=== PATIENT | female | born 1995 | race Caucasian/White ===

== ENCOUNTER 2018-03-31 09:21 | Emergency (ER) | payer SELFPAY ==
[2018-03-31 10:50] LABS: Urine Blood 1+ (NEG); Urine Glucose NEGATIVE (NEG); Urine Protein NEGATIVE (NEG); Urine pH 5.5 (5.0-7.0)
[2018-03-31 10:55] LABS: Absolute Lymphocytes (CBC) 2.1 K/uL (0.7-4.9); Absolute Monocytes 0.4 K/uL (0.1-1.3); Basophils % 1.1 % (0-1.3); Eosinophils % 5.8 % (0-4.4); Hematocrit 36.7 % (36.0-45.0); Lymphocytes % 35.1 % (15.3-44.8); MCH 30.8 pg (27.0-35.0); MCV 90.8 fL (80-100); MPV 8.3 fL (7.6-11.3); Monocytes % 6.5 % (3.3-12.3); RBC Red Blood Cell Count 4.04 M/uL (3.86-4.86)
[2018-03-31 11:01] LABS: Potassium 3.9 mEq/L (3.6-5.0)
[2018-03-31 11:07] LABS: Bilirubin Direct 0.1 mg/dL (0-0.2); Bilirubin Total 0.8 mg/dL (0.3-1.2); Protein, Total 6.8 g/dL (6.0-8.3)
[2018-03-31 11:35] LABS: Urine Bacteria <20 /HPF (<20); Urine RBC <5 /HPF (NONE SEEN)
[2018-03-31 11:36] LABS: Urine Culture Reflex Order NOT NEEDED
[2018-03-31] MEDS ORDERED: KETOROLAC 30 MG/ML INJ ONE (11:52)
[2018-03-31] MEDS ORDERED: NA CHLORIDE 0.9% 1,000 ML ONE (11:52)
--- NOTE | 2018-03-31 11:54 | RAD REPORT ---
EXAM DESCRIPTION: CTAbdomen Pelvis W Contrast - 03/31/2018 11:47 am CLINICAL HISTORY: Abdominal pain. Left flank pain COMPARISON: None. TECHNIQUE: Biphasic CT imaging of the abdomen and pelvis was performed with 100 ml non-ionic IV cont rast. All CT scans are performed using dose optimization technique as appropriate and may include automated exposure control or mA/KV adjustment according to patient size. FINDINGS: The lung bases are clear. The liver, spleen, pancreas, adrenal glands are within normal limits. Bilateral punctate nephrolithia sis is identified without hydronephrosis. No bowel obstruction, free air, free fluid or abscess. Sigmoid diverticulosis without diverticulitis. The appendix is normal. No evidence of significant lymphadenopathy. No suspicious bony findings. IMPRESSION: Punctate bilateral nephrolithiasis without hydronephrosis.
--- NOTE | 2018-03-31 12:22 | EDPHYS ---
Physician Documentation [facility] Name: Candy Garcia Age: 22 yrs Sex: Female : 1995 Arrival Date: 03/31/2018 Time: 09:30 Bed 14 Private MD: ED Physician Kishan Arias HPI: 03/31 10:00 This 22 yrs old Female presents to ER via Ambulatory with complaints of pm1 Weakness, Back Pain. 10:00 The patient complains of pain in the left mid back. radiation to left lower rib area. pm1 Onset: The symptoms/episode began/occurred 3 day(s) ago. Modifying factors: The symptoms are alleviated by nothing. the symptoms are aggravated by nothing. Associated signs and symptoms: Pertinent negatives: dysuria, fever, nausea, vomiting. Severity of pain: in the emergency department the pain is unchanged Despite two visit to the chiropractor and received massage for two days. The patient has not experienced similar symptoms in the past. The patient has not recently seen a physician. 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 - Social history:: Smoking status: Patient/guardian denies using tobacco. ROS: 10:00 Constitutional: Negative for fever, chills, and weight loss, Eyes: Negative for injury, pm1 pain, redness, and discharge, ENT: Negative for injury, pain, and discharge, Neck: Negative for injury, pain, and swelling, Cardiovascular: Negative for chest pain, palpitations, and edema, Respiratory: Negative for shortness of breath, cough, wheezing, and pleuritic chest pain, Abdomen/GI: Negative for abdominal pain, nausea, vomiting, diarrhea, and constipation. 10:00 : Negative for injury, bleeding, discharge, and swelling, MS/Extremity: Negative for injury and deformity, Skin: Negative for injury, rash, and discoloration, Neuro: Negative for headache, weakness, numbness, tingling, and seizure. 10:00 Back: Positive for flank pain, on the left. Exam: 10:00 Constitutional: This is a well developed, well nourished patient who is awake, alert, pm1 and in no acute distress. Head/Face: Normocephalic, atraumatic. Eyes: Pupils equal round and reactive to light, extra-ocular motions intact. Lids and lashes normal. Conjunctiva and sclera are non-icteric and not injected. Cornea within normal limits. Periorbital areas with no swelling, redness, or edema. ENT: Nares patent. No nasal discharge, no septal abnormalities noted. Tympanic membranes are normal and external auditory canals are clear. Oropharynx with no redness, swelling, or masses, exudates, or evidence of obstruction, uvula midline. Mucous membranes moist. Neck: Trachea midline, no thyromegaly or masses palpated, and no cervical lymphadenopathy. Supple, full range of motion without nuchal rigidity, or vertebral point tenderness. No Meningismus. Chest/axilla: Normal chest wall appearance and motion. Nontender with no deformity. No lesions are appreciated. Cardiovascular: Regular rate and rhythm with a normal S1 and S2. No gallops, murmurs, or rubs. Normal PMI, no JVD. No pulse deficits. Respiratory: Lungs have equal breath sounds bilaterally, clear to auscultation and percussion. No rales, rhonchi or wheezes noted. No increased work of breathing, no retractions or nasal flaring. Abdomen/GI: Soft, non-tender, with normal bowel sounds. No distension or tympany. No guarding or rebound. No evidence of tenderness throughout. 10:00 Skin: Warm, dry with normal turgor. Normal color with no rashes, no lesions, and no evidence of cellulitis. MS/ Extremity: Pulses equal, no cyanosis. Neurovascular intact. Full, normal range of motion. 10:00 Back: muscle spasm, is appreciated in the left mid back, Pain reproduced with moving left arm above her head and with palpation . 10:00 Neuro: Orientation: is normal, Mentation: is normal, Motor: moves all fours, Gait: is steady, at a normal pace, without difficulty. Vital Signs: 09:46 BP 133 / 76; Pulse 55; Resp 16; Temp 97.7; Pulse Ox 100% on R/A; Weight 88.45 kg; ph Height 5 ft. 10 in. (177.80 cm); Pain 9/10; 11:15 BP 127 / 82; Pulse 56; Resp 18; Pulse Ox 98% on R/A; ph 12:30 BP 122 / 78; Pulse 54; Resp 18; Temp 97.8(TE); Pulse Ox 98% on R/A; ph 09:46 Body Mass Index 27.98 (88.45 kg, 177.80 cm) ph MDM: 09:37 Patient medically screened. pm1 12:17 Data reviewed: vital signs. Data interpreted: Pulse oximetry: on room air is 98 %. pm1 Interpretation: normal. Counseling: I had a detailed discussion with the patient and/or guardian regarding: the historical points, exam findings, and any diagnostic results supporting the discharge/admit diagnosis, lab results, radiology results, the need for outpatient follow up, to return to the emergency department if symptoms worsen or persist or if there are any questions or concerns that arise at home. 03/31 09:49 Order name: Basic Metabolic Panel; Complete Time: 11:19 pm03/31 09:49 Order name: CBC with Diff; Complete Time: 11:19 pm03/31 09:49 Order name: Hepatic Function; Complete Time: 11:19 pm03/31 09:49 Order name: Lipase; Complete Time: 11:19 pm03/31 09:49 Order name: Urine Microscopic Only; Complete Time: 11:42 pm03/31 10:37 Order name: Urine Dipstick--Ancillary (enter results); Complete Time: 11:19 bd 03/31 09:49 Order name: Urine Test (obtain specimen); Complete Time: 10:36 pm03/31 09:49 Order name: IV Saline Lock; Complete Time: 10:34 pm03/31 09:49 Order name: Labs collected and sent; Complete Time: 10:34 pm03/31 09:49 Order name: Urine Dipstick-Ancillary (obtain specimen); Complete Time: 10:34 pm03/31 10:37 Order name: Urine --Ancillary (enter results); Complete Time: 11:19 bd 03/31 11:23 Order name: CT Abd/Pelvis - W/Contrast: IV contrast only; Complete Time: 12:09 pm1 Administered Medications: 11:55 Drug: NS 0.9% 1000 ml Route: IV; Rate: 1000 ml; Site: right antecubital; ph 11:55 Drug: TORadol 30 mg Route: IVP; Site: right antecubital; ph Disposition: 04/01 07:16 Co-signature as Attending Physician, Kishan Arias MD I agree with the assessment and jacinto plan of care. Disposition: 03/31/18 12:22 Discharged to Home. Impression: Bilateral nephrolithiasis, Left flank pain. - Condition is Stable. - Discharge Instructions: Kidney Stones, Muscle Cramps and Spasms, Dietary Guidelines to Help Prevent Kidney Stones. - Prescriptions for Naprosyn 500 mg Oral Tablet - take 1 tablet by ORAL route 2 times per day take with food; 30 tablet. Cyclobenzaprine 10 mg Oral Tablet - take 1 tablet by ORAL route every 8 hours As needed; 30 tablet. - Work release form, Medication Reconciliation Form, Thank You Letter form. - Follow up: Emergency Department; When: As needed; Reason: Worsening of condition. Follow up: Private Physician; When: 2 - 3 days; Reason: Recheck today's complaints, Continuance of care, Re-evaluation by your physician. - Problem is new. - Symptoms have improved. Signatures: Dispatcher [employer] Kishan Mora MD MD cha Hall, Patricia, RN RN Earl John NP JET SKI MECHANIC pm1 Corrections: (The following items were deleted from the chart) 03/31 13:02 12:22 03/31/2018 12:22 Discharged to Home. Impression: Bilateral nephrolithiasis; Left ph flank pain. Condition is Stable. Forms are Medication Reconciliation Form, Thank You Letter, Antibiotic Education, Prescription Opioid Use. Follow up: Emergency Department; When: As needed; Reason: Worsening of condition. Follow up: Private Physician; When: 2 - 3 days; Reason: Recheck today's complaints, Continuance of care, Re-evaluation by your physician. Problem is new. Symptoms have improved. pm1
--- NOTE | 2018-03-31 12:22 | ER ---
Nurse's Notes [facility] Name: Candy Garcia Age: 22 yrs Sex: Female : 1995 Arrival Date: 03/31/2018 Time: 09:30 Bed 14 Private MD: Diagnosis: Bilateral nephrolithiasis;Left flank pain Presentation: 03/31 09:43 Presenting complaint: Patient states: " I have been having back pain that wraps around ph to my ribs since Wednesday. I've also been told that I need to watch my sugar and iron levels and I've been feeling really weak lately so I wanted to get those checked too." Denies known injury, also denies urinary symptoms. Transition of care: patient was not received from another setting of care. Onset of symptoms was March 31, 2018. Initial Sepsis Screen: Does the patient meet any 2 criteria? No. Patient's initial sepsis screen is negative. Does the patient have a suspected source of infection? No. Patient's initial sepsis screen is negative. Care prior to arrival: None. 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 - Social history:: Smoking status: Patient/guardian denies using tobacco. Screenin:31 Abuse screen: Denies threats or abuse. Denies injuries from another. Nutritional ph screening: No deficits noted. Tuberculosis screening: No symptoms or risk factors identified. Fall Risk None identified. Assessment: 09:48 General: Appears in no apparent distress. uncomfortable, well groomed, Behavior is ph calm, cooperative, appropriate for age, Denies fever, feeling ill. Pain: Complains of pain in left mid back Pain radiates to left lateral posterior chest and left lateral anterior chest. Neuro: Level of Consciousness is awake, alert, obeys commands, Oriented to person, place, time, situation. Cardiovascular: Capillary refill < 3 seconds Patient's skin is warm and dry. Respiratory: Reports pain with cough pain with movement Airway is patent Respiratory effort is even, unlabored. GI: Reports nausea, Patient currently denies diarrhea, nausea, vomiting. : Denies burning with urination, urinary frequency. Derm: Skin is intact, is healthy with good turgor, Skin is pink, warm \\T\\ dry. Musculoskeletal: Circulation, motion, and sensation intact. Range of motion: intact in all extremities. 11:25 Reassessment: Patient appears in no apparent distress at this time. Patient and/or ph family updated on plan of care and expected duration. Pain level reassessed. Patient is alert, oriented x 3, equal unlabored respirations, skin warm/dry/pink. Pt taken to CT via wheelchair. Vital Signs: 09:46 BP 133 / 76; Pulse 55; Resp 16; Temp 97.7; Pulse Ox 100% on R/A; Weight 88.45 kg; ph Height 5 ft. 10 in. (177.80 cm); Pain 9/10; 11:15 BP 127 / 82; Pulse 56; Resp 18; Pulse Ox 98% on R/A; ph 12:30 BP 122 / 78; Pulse 54; Resp 18; Temp 97.8(TE); Pulse Ox 98% on R/A; ph 09:46 Body Mass Index 27.98 (88.45 kg, 177.80 cm) ph ED Course: 09:30 Patient arrived in ED. sb2 09:31 Earl Castillo NP is PHCP. pm1 09:31 Kishan Arias MD is Attending Physician. pm1 09:42 Darlin Dong, RN is Primary Nurse. ph 09:45 Triage completed. ph 09:48 Arm band placed on. ph 10:20 Inserted saline lock: 20 gauge in left antecubital area, using aseptic technique. Blood ph collected. 10:32 Patient has correct armband on for positive identification. Bed in low position. Call ph light in reach. Side rails up X 1. Pulse ox on. NIBP on. Warm blanket given. 11:47 CT Abd/Pelvis - W/Contrast: IV contrast only In Process Unspecified. EDMS 13:00 No provider procedures requiring assistance completed. IV discontinued, intact, ph bleeding controlled, No redness/swelling at site. Pressure dressing applied. Administered Medications: 11:55 Drug: NS 0.9% 1000 ml Route: IV; Rate: 1000 ml; Site: right antecubital; ph 11:55 Drug: TORadol 30 mg Route: IVP; Site: right antecubital; ph Outcome: 12:22 Discharge ordered by . pm1 13:02 Patient left the ED. ph 13:02 Discharged to home ambulatory, with friend. ph 13:02 Condition: good 13:02 Discharge instructions given to patient, Instructed on discharge instructions, follow up and referral plans. medication usage, Demonstrated understanding of instructions, follow-up care, medications, Prescriptions given X 2. Signatures: Dispatcher [employer] Darlin Pereira RN RN Earl John, JERSON RECEIVING TELLER pm1 Lor Manzanares sb2
== END 2018-03-31 13:02 | disposition home or self-care (01) ==
LOC: ER 09:21
DX: N20.0 Calculus of kidney (principal)
CPT/HCPCS: 36415; 74177; 80048; 80076; 81003; 81015; 81025; 83690; 85025; 96374; 99284; J7030; Q9967